=== PATIENT | male | born 1985 | race Caucasian/White ===

== ENCOUNTER 2022-09-13 13:26 | Inpatient (IN) | payer OTHER ==
[2022-09-13 14:23] VITALS: BMI 18.8
[2022-09-13] MEDS ORDERED: chlordiazePOXIDE HCL 25 MG CAPSULE PO ONE (18:16)
[2022-09-13] MEDS ORDERED: levETIRAcetam 500 MG TABLET (FP) PO ONE ×2 (18:17→18:27)
[2022-09-13] MEDS ORDERED: chlordiazePOXIDE HCL 25 MG CAPSULE ONE (18:26)
[2022-09-13] MEDS ORDERED: ONDANSETRON *ODT* 4 MG TABLET SL PRN (18:47)
[2022-09-13] MEDS ORDERED: NALOXONE HCL 0.4 MG/ML VIAL IM PRN (18:47)
[2022-09-13] MEDS ORDERED: LOPERAMIDE HCL 2 MG CAPSULE PO PRN (18:47)
[2022-09-13] MEDS ORDERED: P-EPHED 60MG/TRIPROLIDI 2.5MG TABLET PO PRN (18:47)
[2022-09-13] MEDS ORDERED: DICYCLOMINE HCL 10 MG CAPSULE PO PRN (18:47)
[2022-09-13] MEDS ORDERED: MAGNESIUM HYDROX 2400MG/30ML ORAL SUSPENSION 30 ML CUP PO PRN (18:47)
[2022-09-13] MEDS ORDERED: BENZOCAINE/MENTHOL (CHLORASEPTIC ) LOZENGE MM PRN (18:47)
[2022-09-13] MEDS ORDERED: NICOTINE POLACRILEX 2 MG GUM BUC PRN (18:47)
[2022-09-13] MEDS ORDERED: hydrOXYzine PAMOATE 25 MG CAPSULE (FP) PO PRN (18:47)
[2022-09-13] MEDS ORDERED: NALOXONE HCL (KLOXXADO) 8 MG SPRAY NS PRN (18:47)
[2022-09-13] MEDS ORDERED: IBUPROFEN 400 MG TABLET (FP) PO PRN (18:47)
[2022-09-13] MEDS ORDERED: BISMUTH SUBSALICYLATE 524 MG/30 ML PO PRN (18:47)
[2022-09-13] MEDS ORDERED: guaiFENesin 600 MG TABLET.ER (FP) PO PRN (18:47)
[2022-09-13] MEDS ORDERED: BENZONATATE 200 MG CAPSULE PO PRN (18:47)
[2022-09-13] MEDS ORDERED: ACETAMINOPHEN 325 MG TABLET (FP) PO PRN ×2 (18:47)
[2022-09-13] MEDS ORDERED: POLYETHYLENE GLYCOL (HEALTHYLAX) 3350 17 GM PACKET PO PRN (18:47)
[2022-09-13] MEDS ORDERED: chlordiazePOXIDE HCL 25 MG CAPSULE PO PRN (18:49)
[2022-09-13] MEDS ORDERED: TUBERCULIN PPD 5 TU/0.1ML VIAL ID ONE (19:47)
[2022-09-13] MEDS ORDERED: MELATONIN 5 MG TABLETS PO SCH (22:00)
[2022-09-13] MEDS: levETIRAcetam 500 MG TABLET (FP) PO SCH (22:20)
[2022-09-13] MEDS: THIAMINE HCL 100 MG TABLET (FP) PO SCH (22:20)
[2022-09-13] MEDS: chlordiazePOXIDE HCL 25 MG CAPSULE PO SCH (22:21)
[2022-09-14] MEDS: chlordiazePOXIDE HCL 25 MG CAPSULE PO SCH ×2 (05:13→10:22)
[2022-09-14 09:33] LABS: HEMATOCRIT 40.7 % (35.4-49); HEMOGLOBIN 13.7 GM/dL (11.7-16.9); MCH 32.4 pg (25.7-33.7); MCHC 33.8 g/dl (32.0-35.9); MEAN CELL VOLUME 95.9 fl (80-96); PLATELET COUNT 121 10^3/uL (134-434); RBC 4.24 M/mm3 (4.00-5.60); RDW 14.6 % (11.9-15.9); WHITE BLOOD COUNT 7.5 K/mm3 (4.0-10.0)
[2022-09-14 09:43] LABS: POTASSIUM 4.5 mmol/L (3.5-5.1)
[2022-09-14 09:49] LABS: ALBUMIN 4.1 g/dl (3.4-5.0)
[2022-09-14 09:50] LABS: BLOOD UREA NITROGEN 19.4 mg/dL (7-18)
[2022-09-14 09:52] LABS: CALCIUM 9.9 mg/dL (8.5-10.1)
[2022-09-14 09:56] LABS: CREATININE 0.8 mg/dL (0.55-1.3)
[2022-09-14 09:58] LABS: BILIRUBIN,TOTAL 1.1 mg/dL (0.2-1); TOT PROT 8.1 g/dl (6.4-8.2)
[2022-09-14] MEDS: levETIRAcetam 500 MG TABLET (FP) PO SCH ×2 (10:22→22:15)
[2022-09-14] MEDS: PRENATAL VITAMINS W/ FOLIC ACID TABLET (FP) PO SCH (10:22)
[2022-09-14] MEDS ORDERED: methaDONE HCL 10 MG TABLET PO SCH (10:30)
[2022-09-14] MEDS: MAG HYDROX/AL HYDROX/SIMETH 30 ML UNIT-DOSE CUP PO PRN ×2 (11:05→17:18)
[2022-09-14] MEDS ORDERED: LORazepam 1 MG TABLET PO PRN (14:01)
[2022-09-14] MEDS: LORazepam 2 MG TABLET PO SCH ×2 (17:18→22:15)
[2022-09-14] MEDS ORDERED: QUEtiapine FUMARATE 25 MG TABLET PO PRN (22:00)
[2022-09-14] MEDS: THIAMINE HCL 100 MG TABLET (FP) PO SCH (22:15)
[2022-09-15] MEDS ORDERED: chlordiazePOXIDE HCL 25 MG CAPSULE PO SCH (05:00)
[2022-09-15] MEDS: LORazepam 1 MG TABLET PO SCH ×4 (05:55→22:07)
[2022-09-15] MEDS: MAG HYDROX/AL HYDROX/SIMETH 30 ML UNIT-DOSE CUP PO PRN (05:59)
[2022-09-15] MEDS: levETIRAcetam 500 MG TABLET (FP) PO SCH ×2 (10:18→22:07)
[2022-09-15] MEDS: PRENATAL VITAMINS W/ FOLIC ACID TABLET (FP) PO SCH (10:18)
[2022-09-15] MEDS: IBUPROFEN 600 MG TABLET (FP) PO PRN ×2 (10:18→22:08)
[2022-09-15] MEDS: METHOCARBAMOL 500 MG TABLET PO PRN (10:18)
[2022-09-15] MEDS: QUEtiapine FUMARATE 25 MG TABLET PO PRN (22:08)
[2022-09-16] MEDS ORDERED: LORazepam 0.5 MG TABLET PO PRN
[2022-09-16] MEDS ORDERED: chlordiazePOXIDE HCL 10 MG CAPSULE PO PRN
[2022-09-16] MEDS: THIAMINE HCL 100 MG TABLET (FP) PO SCH ×2 (00:10→22:14)
[2022-09-16] MEDS ORDERED: chlordiazePOXIDE HCL 10 MG CAPSULE PO SCH (05:00)
[2022-09-16] MEDS: LORazepam 0.5 MG TABLET PO SCH ×4 (05:26→22:16)
[2022-09-16] MEDS: IBUPROFEN 600 MG TABLET (FP) PO PRN ×2 (05:28→17:51)
[2022-09-16] MEDS ORDERED: levETIRAcetam 250 MG TABLET PO ONE (09:09)
[2022-09-16] MEDS: levETIRAcetam 500 MG TABLET (FP) PO SCH ×2 (10:04→22:14)
[2022-09-16] MEDS: PRENATAL VITAMINS W/ FOLIC ACID TABLET (FP) PO SCH (10:04)
[2022-09-16] MEDS: METHOCARBAMOL 500 MG TABLET PO PRN (10:05)
[2022-09-16 17:49] VITALS: RESP 17
[2022-09-16] MEDS: QUEtiapine FUMARATE 25 MG TABLET PO PRN (22:14)
[2022-09-17] MEDS ORDERED: LORazepam 0.5 MG TABLET PO ONE (05:00)
[2022-09-17] MEDS ORDERED: chlordiazePOXIDE HCL 10 MG CAPSULE PO SCH (05:00)
[2022-09-17] MEDS: IBUPROFEN 600 MG TABLET (FP) PO PRN (05:40)
[2022-09-17] MEDS: levETIRAcetam 500 MG TABLET (FP) PO SCH (09:41)
[2022-09-17] MEDS: PRENATAL VITAMINS W/ FOLIC ACID TABLET (FP) PO SCH (09:41)
[2022-09-17 09:54] VITALS: BP 126/70; PULSE 86; TEMP 97.2
[2022-09-18] MEDS ORDERED: chlordiazePOXIDE HCL 10 MG CAPSULE PO ONE (05:00)
== END 2022-09-17 09:45 | disposition home or self-care (01) | DRG 773 ==
LOC: YASAS 13:26 → Y6N 18:35
PROVIDERS: ADMIT Allergy & Immunology; ATTEND Surgery
PROC: HZ2ZZZZ Detoxification Services for Substance Abuse Treatment (ICD-10-PCS; principal; 2022-09-13)
DX: F13.230 Sedative, hypnotic or anxiolytic dependence with withdrawal, uncomplicated (principal); F11.20 Opioid dependence, uncomplicated; F12.20 Cannabis dependence, uncomplicated; F19.282 Other psychoactive substance dependence with psychoactive substance-induced sleep disorder; I10 Essential (primary) hypertension; Z87.891 Personal history of nicotine dependence; Z87.19 Personal history of other diseases of the digestive system; Z88.8 Allergy status to other drugs, medicaments and biological substances
CPT/HCPCS: 36415; 80053; 85027; 86780; 87811; C9803-CS; U0003; U0005